=== PATIENT | female | born 1945 | race Caucasian/White ===

== ENCOUNTER → 2021-03-07 | Outpatient (CLI) | payer MEDICARE | LOC: KOH-I 14:45 | DX: G45.9 Transient cerebral ischemic attack, unspecified (principal) | CPT/HCPCS: 93880 ==

== ENCOUNTER 2021-07-02 16:51 | Emergency (ER) | payer MEDICARE | END 2021-07-02 20:23 | disposition home or self-care (01) | LOC: ER1 16:51 | DX: M25.562 Pain in left knee (principal); K21.9 Gastro-esophageal reflux disease without esophagitis | CPT/HCPCS: 29530; 73564; 99283 ==

== ENCOUNTER → 2021-07-19 | Outpatient (CLI) | payer MEDICARE | LOC: KOH-I 13:35 | DX: S83.242A Other tear of medial meniscus, current injury, left knee, initial encounter (principal); M17.12 Unilateral primary osteoarthritis, left knee | CPT/HCPCS: 73718 ==

== ENCOUNTER → 2021-08-23 | Day surgery (SDC) | payer MEDICARE ==
[~2021-08-23] MED LIST: LO-DOSE ASPIRIN81 MG PO; PEPCID AC10 MG PO; ULTRAM50 MG PO; VITAMIN B12 PO
== END | disposition home or self-care (01) ==
LOC: OR 04:38
DX: S83.232A Complex tear of medial meniscus, current injury, left knee, initial encounter (principal); M94.262 Chondromalacia, left knee; M17.12 Unilateral primary osteoarthritis, left knee; I11.9 Hypertensive heart disease without heart failure; K21.9 Gastro-esophageal reflux disease without esophagitis; Z91.040 Latex allergy status; Z79.82 Long term (current) use of aspirin; Z79.899 Other long term (current) drug therapy; X58.XXXA Exposure to other specified factors, initial encounter
CPT/HCPCS: J0171; J0690; J1100; J2001; J2370; J2405; J2704; J3010; J7120

== ENCOUNTER → 2021-12-29 | Outpatient (CLI) | payer MEDICARE | LOC: CT 09:57 | DX: I65.22 Occlusion and stenosis of left carotid artery (principal); I48.91 Unspecified atrial fibrillation; R06.02 Shortness of breath | CPT/HCPCS: 36415; 70498; 82565; 84520; Q9967 ==